=== PATIENT | male | born 1965 | race Two or more races ===

== ENCOUNTER 2016-06-16 17:57 | Emergency (ER) | payer SELFPAY ==
[2016-06-16] MEDS ORDERED: PREDNISONE 20 MG TABLET ONE (18:54)
[2016-06-16] MEDS ORDERED: PENICILLIN G BENZATHINE 1.2 MMU/2 ML SYRINGE IM ONE (18:55)
== END 2016-06-16 19:13 | disposition home or self-care (01) ==
LOC: ED 17:57
DX: J02.0 Streptococcal pharyngitis (principal)
CPT/HCPCS: 87880; 99283 ×2; 96372; J7512; J0561